=== PATIENT | female | born 1985 | race American Indian/Alaskan Native ===

== ENCOUNTER 2018-03-05 19:24 | Inpatient (IN) | payer MEDICAID, OTHER ==
[2018-03-05 21:10] LABS: BASO # 0.03 K/mm3 (0.0-2.0); BASO % 0.3 % (0.0-3.0); EOS # 0.1 (0.0-0.7); EOS % 0.9 % (1.5-5.0); GRAN # 4.97 (1.4-6.5); GRAN % 54.1 % (50.0-68.0); HEMOGLOBIN 12.6 g/dL (12.0-16.0); LYMPH # 3.6 (1.2-3.4); LYMPH % 39.2 % (22.0-35.0); MEAN CELL VOLUME 81.1 fl (80.0-105.0); MEAN CORPUSCULAR HGB CONC 34.5 g/dl (31.0-37.0); MEAN PLATELET VOLUME 8.8 fl (7.0-11.0); MONO # 0.5 (0.1-0.6); MONO % 5.5 % (1.0-6.0); RBC 4.5 10^6/uL (3.5-6.1); RED CELL DISTRIBUTION WIDTH 14.5 % (11.5-14.5); WHITE BLOOD COUNT 9.2 10^3/ul (4.5-11.0)
[2018-03-05 21:32] LABS: ACETAMINOPHEN < 10.0 ug/ml (10.0-20.0); ALB/GLOB RATIO 1.4 (1.1-1.8); ALBUMIN 4.6 g/dL (3.0-4.8); ALT/SGPT 36 U/L (7-56); AST/SGOT 41 U/L (14-36); BLOOD UREA NITROGEN 12 mg/dL (7-21); GFR AFRICAN-AMERICAN > 60; GFR NON-AFRICAN AMERICAN > 60; SALICYLATE < 1 mg/dL (2.0-20.0)
[2018-03-05 21:35] LABS: PH,URINE 6.5 (4.7-8.0); URINE APPEARANCE CLEAR (CLEAR); URINE BILIRUBIN NEGATIVE (NEGATIVE); URINE BLOOD NEGATIVE (NEGATIVE); URINE COLOR YELLOW (YELLOW); URINE GLUCOSE (UA) NEGATIVE (NEGATIVE); URINE LEUKOCYTE ESTERASE TRACE Leu/uL (NEGATIVE); URINE PROTEIN NEGATIVE mg/dL (<30 mg/dL); URINE UROBILINOGEN 0.2 E.U./dL (<1 E.U./dL)
[2018-03-05 21:55] LABS: BENZODIAZEPINES, UR NEGATIVE (NEGATIVE)
[2018-03-05 22:09] LABS: URINE BACTERIA FEW (NEG); URINE RBC NEGATIVE /hpf (0-2)
[2018-03-05 22:13] LABS: BARBITURATES, UR NEGATIVE (NEGATIVE); PHENCYCLIDINE, UR NEGATIVE (NEGATIVE)
[2018-03-05 22:44] LABS: OPIATES, UR NEGATIVE (NEGATIVE)
--- NOTE | 2018-03-05 23:44 | ED PDOC ---
Arrival/HPI - General Chief Complaint: Psychiatric Evaluation Time Seen by Provider: 03/05/18 19:26 Historian: Patient - History of Present Illness Narrative History of Present Illness (Text): 03/05/18 23:43 32-year-old female with a history of schizoaffective disorder presents today with suicidal ideation. Patient states she has thoughts of killing herself by drowning. Patient denies headache dizziness or weakness. Denies fevers or chills. No chest pain or shortness of breath. No other complaints Past Medical History - Provider Review Nursing Documentation Reviewed: Yes - Travel History Have you recently traveled outside [place] w/in the past 3 mons?: No - Tetanus Immunization Tetanus Immunization: Unknown - Cardiac Hx Cardiac Disorders: No - Pulmonary Hx Respiratory Disorders: No - Neurological Hx Neurological Disorder: No - HEENT Hx HEENT Disorder: No - Renal Hx Renal Disorder: No - Endocrine/Metabolic Hx Endocrine Disorders: No - Hematological/Oncological Hx Blood Disorders: No - Integumentary Hx Dermatological Disorder: No - Musculoskeletal/Rheumatological Hx Musculoskeletal Disorders: No - Gastrointestinal Hx Gastrointestinal Disorders: No - Genitourinary/Gynecological Hx Genitourinary Disorders: No - Psychiatric Hx Psychophysiologic Disorder: Yes Hx Schizophrenia: Yes (schizoaffective- med compliant) Hx Substance Use: No Family/Social History - Physician Review Nursing Documentation Reviewed: Yes Family/Social History: Unknown Family HX Smoking Status: Never Smoked Hx Alcohol Use: No Hx Substance Use: No Allergies/Home Meds Allergies/Adverse Reactions: Allergies codeine Allergy (Verified 03/05/18 19:39) RASH Home Medications: Home Meds Medication Instructions Recorded Confirmed Aripiprazole [Abilify] 30 mg PO DAILY 05/03/16 03/05/18 Benztropine [Cogentin] 1 mg PO BID 05/03/16 03/05/18 Olanzapine [Zyprexa] 30 mg PO DAILY 05/03/16 03/05/18 Sertraline [Zoloft] 125 mg PO DAILY 05/03/16 03/05/18 Norethindrone AC-Eth Estradiol 1 tab PO DAILY 03/05/18 03/05/18 [Junel 1 mg-20 Mcg Tablet] hydrOXYzine Pamoate [Vistaril] 25 mg PO DAILY 03/05/18 03/05/18 Review of Systems - Review of Systems Constitutional: absent: Fatigue, Fevers Respiratory: absent: SOB, Cough Cardiovascular: absent: Chest Pain, Palpitations Gastrointestinal: absent: Abdominal Pain, Nausea, Vomiting Genitourinary Female: absent: Dysuria, Frequency, Hematuria Musculoskeletal: absent: Arthralgias, Back Pain, Neck Pain Skin: absent: Rash, Pruritis Psychiatric: Depression, Suicidal Ideation Physical Exam Vital Signs Reviewed: Yes Vital Signs Temp Pulse Resp BP Pulse Ox 03/05/18 22:02 91 H 18 132/78 99 03/05/18 19:40 99.6 F 111 H 18 133/79 99 Temperature: Afebrile Blood Pressure: Normal Pulse: Tachycardic Respiratory Rate: Normal Appearance: Positive for: Well-Appearing, Non-Toxic, Comfortable Pain Distress: None Mental Status: Positive for: Alert and Oriented X 3 - Systems Exam Head: Present: Atraumatic Mouth: Present: Moist Mucous Membranes Neck: Present: Normal Range of Motion Respiratory/Chest: Present: Clear to Auscultation, Good Air Exchange. No: Respiratory Distress, Accessory Muscle Use Cardiovascular: Present: Regular Rate and Rhythm, Normal S1, S2. No: Murmurs Abdomen: No: Tenderness, Rebound, Guarding Upper Extremity: Present: Normal ROM Lower Extremity: Present: Normal ROM Neurological: Present: GCS=15, Speech Normal Skin: Present: Warm, Dry, Normal Color. No: Rashes Psychiatric: Present: Alert, Oriented x 3, Depressed Mood Medical Decision Making ED Course and Treatment: 03/06/18 00:12 Patient is nontoxic well-appearing in no distress vital signs are stable. pt with SI. pt was placed on 1:1 CBC WNL CMP WNL Tylenol WNL Salicylate WNL Alcohol level WNL Urine drug screen wnl UA; trace leukocytes, contamination. no UTI symptoms cxr: wnl ekg normal sinus rhythm at 82 bpm normal axis and no ST elevation QTC 42 pt is medically cleared for PES evaluation Patient was seen and evaluated by PES screener: nick Patient signed voluntarily to psychiatric floor Impression; schizoaffective disorder Admitted to behavioral health floor Reassessment Condition: Re-examined, Improved - Lab Interpretations Lab Results: 03/05/18 20:55 03/05/18 20:55 Lab Results 03/05/18 21:25: Urine Opiates Screen Negative, Urine Methadone Screen Negative, Ur Barbiturates Screen Negative, Ur Phencyclidine Scrn Negative, Ur Amphetamines Screen Negative, U Benzodiazepines Scrn Negative, U Oth Cocaine Metabols Negative, U Cannabinoids Screen Negative 03/05/18 21:25: Urine Color Yellow, Urine Appearance Clear, Urine pH 6.5, Ur Specific [place] 1.015, Urine Protein Negative, Urine Glucose (UA) Negative, Urine Ketones Negative, Urine Blood Negative, Urine Nitrate Negative, Urine Bilirubin Negative, Urine Urobilinogen 0.2, Ur Leukocyte Esterase Trace H, Urine RBC Negative, Urine WBC 2 - 5, Ur Epithelial Cells 10 - 12, Urine Bacteria Few 03/05/18 20:55: Alcohol, Quantitative < 10 03/05/18 20:55: Salicylates < 1 L, Acetaminophen < 10.0 L 03/05/18 20:55: Sodium 144, Potassium 3.9, Chloride 107, Carbon Dioxide 26, Anion Gap 15, BUN 12, Creatinine 0.9, Est GFR ( Amer) > 60, Est GFR (Non- Af Amer) > 60, Random Glucose 93, Calcium 10.0, Total Bilirubin 0.2, AST 41 H, ALT 36, Alkaline Phosphatase 62, Total Protein 7.8, Albumin 4.6, Globulin 3.3, Albumin/Globulin Ratio 1.4 03/05/18 20:55: WBC 9.2 D, RBC 4.50, Hgb 12.6, Hct 36.5, MCV 81.1, MCH 28.0, MCHC 34.5, RDW 14.5, Plt Count 343, MPV 8.8, Gran % 54.1, Lymph % (Auto) 39.2 H , [place] % (Auto) 5.5, Eos % (Auto) 0.9 L, Baso % (Auto) 0.3, Gran # 4.97, Lymph # (Auto) 3.6 H, [place] # (Auto) 0.5, Eos # (Auto) 0.1, Baso # (Auto) 0.03 - RAD Interpretation Radiology Orders: 03/05/18 19:51 CHEST PORTABLE [RAD] Stat Disposition/Present on Arrival - Present on Arrival Any Indicators Present on Arrival: No History of DVT/PE: No History of Uncontrolled Diabetes: No Urinary Catheter: No History of Decub. Ulcer: No History Surgical Site Infection Following: None - Disposition Have Diagnosis and Disposition been Completed?: Yes Diagnosis: Schizoaffective disorder, Suicidal ideations Disposition: HOSPITALIZED Disposition Time: 23:00 Patient Plan: Admission Condition: FAIR
[2018-03-06] MEDS ORDERED: Alum-Mag Hydrox-Simethicone Susp (30 mL) PO PRN (00:57)
[2018-03-06] MEDS ORDERED: Magnesium Hydroxide Susp 30 ml UD PO PRN (00:57)
[2018-03-06 03:15] VITALS: RESP 20
--- NOTE | 2018-03-06 03:41 | PCM.BM ---
<Rodolfo Dang - Last Filed: 03/06/18 03:37> Treatment Plan Problems - Problems identified on initial assessmt Suicidal Ideation Date Initiated: 03/06/18 Time Initiated: 03:37 Assessment reference: NA Status: Active Auditory Hallucinations Date Initiated: 03/06/18 Time Initiated: 03:38 Assessment reference: NA Status: Active Visual Hallucinations Date Initiated: 03/06/18 Time Initiated: 03:38 Assessment reference: NA Status: Active Ineffective Coping Date Initiated: 03/06/18 Time Initiated: 03:38 Assessment reference: NA Status: Active Hopelessness/Helplessness Date Initiated: 03/06/18 Time Initiated: 03:38 Assessment reference: NA Status: Active Feelings of Worthlessness Date Initiated: 03/06/18 Time Initiated: 03:39 Assessment reference: NA Status: Active Treatment assets and liabiliti Patient Assests: cooperative, educated, self-reliant, ADL independent, physically healthy, good support system, negotiates basic needs, cognitively intact Patient Liabilities: financial problems - Milieu Protocol Maintain good personal hygiene: daily Encourage regular showers, daily Remind patient to perform daily oral care, daily Assist patient to perform ADL's Conduct patient checks and document Observation sheet: Q15 minutes Maintain personal safety: every shift Educate patient to report safety concerns to staff, every shift Monitor environment for contraband/sharps Medication safety: Monitor for expected outcome, potential side effects: every shift, Assess barriers to learning: every shift, Assess readiness for medication education: every shift Discharge/Continuing Care - Education Needs Education Needs: Patient Medication, Patient Diagnosis/Disease Process, Patient Coping Skills, Patient Community resources, Patient Health Practices/Safety, Patient Aftercare Safety Plan - Discharge Discharge Criteria: Tolerates medication w/o severe side effects, Free of Suicidal thoughts, Free of Homicidal thoughts, Free of paranoid thoughts, Normal sleep pattern, Ability to care for self, Reduction of target symptoms <Laurie Mayer - Last Filed: 03/06/18 12:26> - Diagnosis (1) Schizoaffective disorder Status: Acute Interventions: 03/06/18 12:25 Psychoeducation supportive therapy Psychopharmacology/adjustment of medications as needed/ monitoring possible side effects Evaluate pt on daily basis Compliance with medications and follow up appointments Long acting medication if pt is noncompliant with pill form Suicide and homicide risk assessment and prevention, coping strategies, safety plan Relapse prevention Reduction of symptoms Improve functional status Possible assertive community treatment Cognitive behavioral therapy Family involvement Possible social skill training as outpatient
[2018-03-06 07:55] LABS: GLUCOSE,FASTING 84 mg/dL (65-110); HDL CHOLESTEROL 51 mg/dL (29-60)
[2018-03-06 08:06] LABS: LDL CHOLESTEROL 112 mg/dL (0-129)
--- NOTE | 2018-03-06 08:34 | RAD ---
HISTORY: pes COMPARISON: 09/12/2017. FINDINGS: LUNGS: The lungs are well inflated and clear. PLEURA: No significant pleural effusion identified, no pneumothorax apparent. CARDIOVASCULAR: Normal. OSSEOUS STRUCTURES: Within normal limits for the patient's age. There are bilateral bony cervical ribs. VISUALIZED UPPER ABDOMEN: Normal. OTHER FINDINGS: None. IMPRESSION: No active pulmonary disease.
--- NOTE | 2018-03-06 12:25 | PCM.PSYCH ---
Initial Psychiatric Evaluation - Initial Psychiatric Evaluation Type of Admission: Voluntary Legal Status: Capacity (Patient has capacity to sign consent for treatment) Chief Complaint (in patient's own words): "I had intrusive thoughts of drowning myself in the bathtub" Patient's Reaction to Hospitalization: patient was admitted to the psychiatric inpatient unit for evaluation and stabilization of depression as well as anxiety possible psychotic symptoms and possible suicidal ideation History of Present Illness and Precipitating Events: shortly, patient is 32 year old -[place]ian female, self reported history of schizoaffective disorder, 1 previous psychiatric admission at age of 18, patient has history of self mutilating behavior, patient has history of cutting herself, last time was more than a year ago, patient was referred by therapist at the [facility], for evaluation and stabilization of possible suicidal ideation with a plan to drown herself in bath tub as well as feeling of hurting others. Patient failed outpatient treatment, now she needs further evaluation and stabilization and acute psychiatric inpatient unit. Patient was seen and examined at the treatment team meeting, patient presented with acceptable personal hygiene, good ADLs, very thin build. Patient tried to minimize all of her symptoms, patient was withholding information about thoughts of hurting others we she reported in the emergency room. Patient said that she has intrusive thoughts of drowning herself into the bathtub, patient denied any intent or plan to do so. Patient reported that she was feeling stressed out and depressed for past 2 weeks, patient reported feeling hopeless, helpless, worthless, guilty, patient reported that she feels anxious all the time, patient reported that her sleep and appetite are fair. Patient denied history of abuse, patient reported that she has flashbacks and 9 bears about memories what she does not want to remember, for example when patient was admitted for her first time into the psychiatric inpatient unit. Patient reported that she has history of hearing voices for past 2 days she was hearing voices, patient described it as male voices and saying that "my life is potassium, and I need to go against God". in the emergency room patient stated: "I see flahsing lights and glows around people" Patient reported that she sees Dr. Flores on regular basis, patient reported that she is compliant with the medications. Past psychiatric history as this bond underwriter mentioned above patient has 1 previous hospitalization at the age of 18, patient denied history of suicidal attempts. Medical history: Patient denied medical history. Family history: Patient denied family history of mental illness. Patient denied smoking, denied using drugs denied drinking alcohol patient's pharmacy was contacted [facility] pharmacy phone number [phone] zyprexa 20 mg at the nighttime prescribed by Dr. Hernandez total patient filled prescription on February 27 Abilify 30 mg daily same prescriber field in February 27 Vistaril 25 mg twice a day same prescriber Zoloft 100 mg by mouth daily same prescriber Cogentin 1 mg twice a day same prescriber all meds were filled at the same day 03/05/18 20:55 03/05/18 20:55 Lab Results 03/06/18 07:10: TSH 3rd Generation 2.53 03/06/18 07:10: Fasting Glucose 84, Triglycerides 73, Cholesterol 192, LDL Cholesterol Direct 112, HDL Cholesterol 51 03/05/18 21:25: Urine Opiates Screen Negative, Urine Methadone Screen Negative, Ur Barbiturates Screen Negative, Ur Phencyclidine Scrn Negative, Ur Amphetamines Screen Negative, U Benzodiazepines Scrn Negative, U Oth Cocaine Metabols Negative, U Cannabinoids Screen Negative 03/05/18 21:25: Urine Color Yellow, Urine Appearance Clear, Urine pH 6.5, Ur Specific [place] 1.015, Urine Protein Negative, Urine Glucose (UA) Negative, Urine Ketones Negative, Urine Blood Negative, Urine Nitrate Negative, Urine Bilirubin Negative, Urine Urobilinogen 0.2, Ur Leukocyte Esterase Trace H, Urine RBC Negative, Urine WBC 2 - 5, Ur Epithelial Cells 10 - 12, Urine Bacteria Few 03/05/18 20:55: Alcohol, Quantitative < 10 03/05/18 20:55: Salicylates < 1 L, Acetaminophen < 10.0 L 03/05/18 20:55: Sodium 144, Potassium 3.9, Chloride 107, Carbon Dioxide 26, Anion Gap 15, BUN 12, Creatinine 0.9, Est GFR ( Amer) > 60, Est GFR (Non- Af Amer) > 60, Random Glucose 93, Calcium 10.0, Total Bilirubin 0.2, AST 41 H, ALT 36, Alkaline Phosphatase 62, Total Protein 7.8, Albumin 4.6, Globulin 3.3, Albumin/Globulin Ratio 1.4 03/05/18 20:55: WBC 9.2 D, RBC 4.50, Hgb 12.6, Hct 36.5, MCV 81.1, MCH 28.0, MCHC 34.5, RDW 14.5, Plt Count 343, MPV 8.8, Gran % 54.1, Lymph % (Auto) 39.2 H , [place] % (Auto) 5.5, Eos % (Auto) 0.9 L, Baso % (Auto) 0.3, Gran # 4.97, Lymph # (Auto) 3.6 H, [place] # (Auto) 0.5, Eos # (Auto) 0.1, Baso # (Auto) 0.03 Vital Signs Temp Pulse Resp BP Pulse Ox 03/06/18 07:28 97.9 F 82 20 115/74 03/05/18 23:51 20 03/05/18 23:45 98.7 F 97 H 18 128/82 100 03/05/18 22:02 91 H 18 132/78 99 03/05/18 19:40 99.6 F 111 H 18 133/79 99 Current Medications: Active Medications Generic Name Dose Route Start Last Admin Trade Name Freq PRN Reason Stop Dose Admin Acetaminophen 650 mg 03/06/18 00:57 Tylenol 325mg Tab PO Q6H PRN Pain, Mild (1-3) Al Hydrox/Mg Hydrox/Simethicone 30 ml 03/06/18 00:57 Maalox Plus 30 Ml PO DAILY PRN Upset Stomach Aripiprazole 15 mg 03/06/18 22:00 Abilify PO AMHS CANDICE Protocol Benztropine Mesylate 1 mg 03/06/18 22:00 Cogentin PO HS CANDICE Clonazepam 0.5 mg 03/06/18 01:00 Klonopin PO HS PRN Anxiety Protocol Hydroxyzine Pamoate 25 mg 03/06/18 01:00 Vistaril PO Q6 PRN Anxiety Protocol Magnesium Hydroxide 30 ml 03/06/18 00:57 Milk Of Magnesia PO DAILY PRN Constipation Olanzapine 20 mg 03/06/18 22:00 Zyprexa Zydis PO HS CANDICE Protocol Sertraline HCl 150 mg 03/07/18 08:00 Zoloft PO DAILY CANDICE Sertraline HCl 100 mg 03/06/18 12:09 Zoloft PO 03/06/18 12:10 STAT STA Zaleplon 5 mg 03/06/18 01:00 Sonata PO HS PRN Insomnia Zoloft will be increased Risk, benefits, alternatives of medications were discussed with the patient Past Psychiatric History - Past Psychiatric History Previous Treatment History: Inpatient Prior Professional Help: see HPI Prior Psychiatric Treatment: see HPI At what hospital: see HPI Duration: see HPI Nature of Treatment: see HPI Explanation of prior treatment: see HPI History of Abuse: see HPI History of ETOH/Drug Use: see HPI History of Family Illness: see HPI Pertinent Medical Hx (Current Medical&Sleep Prob, Allergies): Allergies Allergy/AdvReac Type Severity Reaction Status Date / Time codeine Allergy RASH Verified 03/06/18 00:59 Aripiprazole [Abilify] 30 mg PO DAILY 05/03/16 Benztropine [Cogentin] 1 mg PO BID 05/03/16 Olanzapine [Zyprexa] 30 mg PO DAILY 05/03/16 Sertraline [Zoloft] 125 mg PO DAILY 05/03/16 Norethindrone AC-Eth Estradiol [Junel 1 mg-20 Mcg Tablet] 1 tab PO DAILY hydrOXYzine Pamoate [Vistaril] 25 mg PO DAILY 03/05/18 Review of Systems - Review of Systems Systems not reviewed;Unavailable: Acuity of Condition - EENT Eyes: As Per HPI Ears: As Per HPI Nose/Mouth/Throat: As Per HPI - Breasts Breasts: As Per HPI - Cardiovascular Cardiovascular: As Per HPI - Respiratory Respiratory: As Per HPI - Gastrointestinal Gastrointestinal: As Per HPI - Genitourinary Genitourinary: As Per HPI - Reproductive: Female Reproductive:Female: As Per HPI - Menstruation Menstruation: As Per HPI - Musculoskeletal Musculoskeletal: As Par HPI - Integumentary Integumentary: As Per HPI - Neurological Neurological: As Per HPI - Psychiatric Psychiatric: As Per HPI - Endocrine Endocrine: As Per HPI - Hematologic/Lymphatic Hematologic: As Per HPI Mental Status Examination - Personal Presentation Personal Presentation: Looks stated age - Affect Affect: Flat - Motor Activity Motor Activity: Psychomotor Retardation - Reliability in Providing Information Reliability in Providing Information: Fair - Speech Speech: Organized, Tangential - Mood Mood: Depressed, Anxious - Formal Thought Process Formal Thought Process: Hallucinations, Delusions, Paranoia - Hallucinations/Delusions Hallucinations: Visual, Auditory Delusions: Persecution - Obsessions/Compulsions Obsessions: Yes Description of Obsession/Compulsion: patient has obsessive thoughts of drowning herself - Cognitive Functions Orientation: Person, Place, Situation Sensorium: Alert Attention/Concentration: Easily distracted Estimate of Intelligence: Average Judgement: Intact, as evidence by: Insight regarding need for hospitalization - Risk Risk: Self-mutilation, Diminished functioning - Strength & Assets Inventory Strength & Assets Inventory: Intelligence, Family support, Cooperative, Other ( patient denied using drugs, denied smoking) - Limitations Limitations: Other (evere in a sober symptoms) DSM 5 DX - DSM 5 DSM 5 Diagnosis: as per history of schizoaffective disorder - Recommended/Plan of Treatment Treatment Recommendations and Plan of Treatment: Milieu/structure/supportive therapy Medical consult appreciated, see medical team note for more detailed info SW consultation for discharge plan and social issues Med management medications were confirmed by pharmacy please see above Zoloft will be increased to 150 mg daily Zyprexa and Abilify will be continued Sonata as needed for insomnia Klonopin as needed for anxiety Family involvement Follow up on labs Will monitor closely Pt was educated about risk/benefits and alternatives of medications, coping strategies (safety plan, suicide prevention), relapse prevention, importance of follow up with psychiatrist and therapist, stay away from drugs/alcohol/smoking Projected ELOS: 7 days Prognosis: guarded Discharge Plan and Discharge Criteria: Pt will be not depressed or manic, will be more hopeful, will be not psychotic or anxious, will be not having thoughts of harming self or others, will be tolerating medications well, will not have major side effects, will be able to function, will not pose threat to self or others. - Smoking Cessation Smoking Cessation Initiated: No Reason for not providing: patient denied smoking
--- NOTE | 2018-03-06 14:38 | CARD ---
APPROVED REPORT EKG Measurement Heart [id number] <Conclusion> Normal sinus rhythm Possible Left atrial enlargement Borderline ECG
[2018-03-06] MEDS ORDERED: OLANZapine 10 mg Disintegrating Tab PO SCH (22:00)
[2018-03-07 06:25] VITALS: TEMP 97.8; O2SAT 94
--- NOTE | 2018-03-07 16:53 | PCM.PYCHDC ---
Mental Status Examination - Mental Status Examination Orientation: Person, Place, Situation, Time Memory: Impaired Mood: Neutral Affect: Constricted (at times innapropriate) Attention: Poor (with some improvement) Concentration: Poor (with some improvement) Association: Loose (baseline) Fund of Knowledge: WNL Formal Thought Process: Circumstantial Description of patient's judgement and insight: Pt has improved insight into mental and medical illness, pt was compliant with medications and unit rules and regulations, pt was going to groups, was calm, cooperative, socially appropriate, no behavioral incidents, no agitation, no aggression. Psychotic Thoughts and Behaviors: Pt denied v/a/t hallucinations, denied paranoid ideation, pt does not appear to be psychotic, and thought process is goal directed. Suicidal Ideation: No Current Homicidal Ideation?: No Plan: pt adamantly denied thoughts of harming self or others denied intent or plan. Discharge Summary - Discharge Note Reason for Hospitalization: patient was admitted to the psychiatric inpatient unit for evaluation and stabilization of depression as well as anxiety possible psychotic symptoms and possible suicidal ideation but no intent or plan Psychiatric History (includes Medical, Family, Personal Hx): see HPI Laboratory Data: Abnormal Lab Results 03/06/18 07:10 RPR Nonreactive Consultations:: List each consultation separately and include: 1. Reason for request. 2. Findings. 3. Follow-up Consultations: was seen by medical team and the emergency room Summary of Hospital Course include:: 1. Description of specific treatment plan utilized for patients during their course of treatmen. 2. Summarize the time- course for resolution of acute symptoms and/or regressed behaviors. 3. Describe issues identified and worked on during hospitalization. 4. Describe medication utilized. 5. Describe medical problems identified and treated. 6. Reassessment of suicide risk Summary of Hospital Course: shortly, patient is 32 year old -[place] female, self reported history of schizoaffective disorder, 1 previous psychiatric admission at age of 18, patient has history of self mutilating behavior, patient has history of cutting herself, last time was more than a year ago, patient was referred by therapist at the [facility], for evaluation and stabilization of possible suicidal ideation with a plan to drown herself in bath tub as well as feeling of hurting others. Patient failed outpatient treatment, now she needs further evaluation and stabilization and acute psychiatric inpatient unit. Patient was seen and examined at the treatment team meeting, patient presented with acceptable personal hygiene, good ADLs, very thin build. Patient tried to minimize all of her symptoms, patient was withholding information about thoughts of hurting others we she reported in the emergency room. Patient said that she has intrusive thoughts of drowning herself into the bathtub, patient denied any intent or plan to do so. Patient reported that she was feeling stressed out and depressed for past 2 weeks, patient reported feeling hopeless, helpless, worthless, guilty, patient reported that she feels anxious all the time, patient reported that her sleep and appetite are fair. Patient denied history of abuse, patient reported that she has flashbacks and memories what she does not want to remember, for example when patient was admitted for her first time into the psychiatric inpatient unit. Patient reported that she has history of hearing voices for past 2 days she was hearing voices, patient described it as male voices and saying that "my life is pathetic, and I need to go against God". in the emergency room patient stated: "I see flahsing lights and glows around people" Patient reported that she sees Dr. Flores on regular basis, patient reported that she is compliant with the medications. Past psychiatric history as this science writer mentioned above patient has 1 previous hospitalization at the age of 18, patient denied history of suicidal attempts. Medical history: Patient denied medical history. Family history: Patient denied family history of mental illness. Patient denied smoking, denied using drugs denied drinking alcohol patient's pharmacy was contacted [facility] pharmacy phone number [phone] zyprexa 20 mg at the nighttime prescribed by Dr. Hernandez total patient filled prescription on February 27 Abilify 30 mg daily same prescriber field in February 27 Vistaril 25 mg twice a day same prescriber Zoloft 100 mg by mouth daily same prescriber Cogentin 1 mg twice a day same prescriber all meds were filled at the same day 03/05/18 20:55 03/05/18 20:55 Lab Results 03/06/18 07:10: TSH 3rd Generation 2.53 03/06/18 07:10: Fasting Glucose 84, Triglycerides 73, Cholesterol 192, LDL Cholesterol Direct 112, HDL Cholesterol 51 03/05/18 21:25: Urine Opiates Screen Negative, Urine Methadone Screen Negative, Ur Barbiturates Screen Negative, Ur Phencyclidine Scrn Negative, Ur Amphetamines Screen Negative, U Benzodiazepines Scrn Negative, U Oth Cocaine Metabols Negative, U Cannabinoids Screen Negative 03/05/18 21:25: Urine Color Yellow, Urine Appearance Clear, Urine pH 6.5, Ur Specific [place] 1.015, Urine Protein Negative, Urine Glucose (UA) Negative, Urine Ketones Negative, Urine Blood Negative, Urine Nitrate Negative, Urine Bilirubin Negative, Urine Urobilinogen 0.2, Ur Leukocyte Esterase Trace H, Urine RBC Negative, Urine WBC 2 - 5, Ur Epithelial Cells 10 - 12, Urine Bacteria Few 03/05/18 20:55: Alcohol, Quantitative < 10 03/05/18 20:55: Salicylates < 1 L, Acetaminophen < 10.0 L 03/05/18 20:55: Sodium 144, Potassium 3.9, Chloride 107, Carbon Dioxide 26, Anion Gap 15, BUN 12, Creatinine 0.9, Est GFR ( Amer) > 60, Est GFR (Non- Af Amer) > 60, Random Glucose 93, Calcium 10.0, Total Bilirubin 0.2, AST 41 H, ALT 36, Alkaline Phosphatase 62, Total Protein 7.8, Albumin 4.6, Globulin 3.3, Albumin/Globulin Ratio 1.4 03/05/18 20:55: WBC 9.2 D, RBC 4.50, Hgb 12.6, Hct 36.5, MCV 81.1, MCH 28.0, MCHC 34.5, RDW 14.5, Plt Count 343, MPV 8.8, Gran % 54.1, Lymph % (Auto) 39.2 H , [place] % (Auto) 5.5, Eos % (Auto) 0.9 L, Baso % (Auto) 0.3, Gran # 4.97, Lymph # (Auto) 3.6 H, [place] # (Auto) 0.5, Eos # (Auto) 0.1, Baso # (Auto) 0.03 Vital Signs Temp Pulse Resp BP Pulse Ox 03/06/18 07:28 97.9 F 82 20 115/74 03/05/18 23:51 20 03/05/18 23:45 98.7 F 97 H 18 128/82 100 03/05/18 22:02 91 H 18 132/78 99 03/05/18 19:40 99.6 F 111 H 18 133/79 99 patient was observed for past 48 hours in the psychiatric inpatient unit, patient was calm, corporative, patient does not have any behavioral issues, patient requested to be discharged, submitted 48 hour letter, from this science writer observation patient is not ready to be discharged, at the same time patient does not meet the criteria for [facility] screening process. Patient mother was contacted by , as per mother patient presented "very well" patient mother is willing to accept patient back home, this science writer was concerned about patient's inability to understand and process information and giving weird glances during the treatment team meeting, but as per mother "it is normal for her". Patient mother was not expressing any concerns at this point , she agreed to take patient back home, said that she is coming to the hospital to pick her daughter at the evening time. Patient mother asked for prescription for Zoloft only. Patient mother reported that patient has all of her medications at home. medications were confirmed by pharmacy, all medications resumed, Zoloft was increased to 150 mg daily for possible OCD symptoms and depression. Patient will be continued on Abilify 30 mg a day as well as Zyprexa 10 mg at the nighttime Over the course of this hospitalization pt was attending groups, pt also had medication management, had therapeutic milieu. Overall pt improved pt has realistic future oriented plans there is a family event scheduled for tomorrow, patient appeared not to be depressed, thought process is mildly disorganized, but not acutely psychotic, patient adamantly denied thoughts of harming herself or others, was socially appropriate, no agitation, no aggression. At the time of the discharge pt denied been depressed, denied thoughts of harming self or others, denied psychotic symptoms, adenied been anxious, pt is not in imminent danger to self or others, will be following up at office, information about follow up appointment, time and address provided to the pt, it is patient responsibility to follow up with outpatient clinic, PMD as well as specialists (see note for more detailed information). In case pt will need to obtain results of studies pending at discharge pt was provided with contact information of Psychiatric Inpatient unit [phone] as well as Medical Record Department [phone]. patient denied smoking, denied drinking alcohol pt was provided with prescriptions for all of medications (please see medication reconciliation form) Pt was educated about safety plan in case of worsening of symptoms or in case of suicidal or homicidal ideation call 911 or go to the nearest ER, also was educated to take meds as prescribed and stay away from drugs, pt verbalized understanding. - Diagnosis (1) Schizoaffective disorder Current Visit: Yes Status: Chronic Priority: High - Final Diagnosis (DSM 5) Condition upon Discharge: FAIR Disposition: AGAINST MEDICAL ADVICE Follow-up Treatment Plan: At the time of the discharge pt denied been depressed, denied thoughts of harming self or others, denied psychotic symptoms, adenied been anxious, pt is not in imminent danger to self or others, will be following up at office, information about follow up appointment, time and address provided to the pt, it is patient responsibility to follow up with outpatient clinic, PMD as well as specialists (see SW note for more detailed information). In case pt will need to obtain results of studies pending at discharge pt was provided with contact information of Psychiatric Inpatient unit [phone] as well as Medical Record Department [phone]. patient denied smoking, denied drinking alcohol pt was provided with prescriptions for all of medications (please see medication reconciliation form) Pt was educated about safety plan in case of worsening of symptoms or in case of suicidal or homicidal ideation call 911 or go to the nearest ER, also was educated to take meds as prescribed and stay away from drugs, pt verbalized understanding. Prescriptions/Medication Reconciliation: Sertraline [Zoloft] 150 mg PO DAILY #45 tab - Smoking Cessation Smoking Cessation Medication prescribed: No Reason for not providing: denies smoking - Antipsychotic Medications Pt discharged on 2 or more routine antipsychotic medications: Yes - Justification for 2 or more meds Failed 3 or more trials of Monotherapy: List medications: patient was on Abilify as well as on Zyprexa since age of 18, patient has outpatient provider was prescribing dose medication to her, patient does not want this medication to be changed, patient will be discharged AGAINST MEDICAL ADVICE, might benefit from Clozaril as outpatient. Plan to taper monotherapy: List medications: patient did not want to participate in treatment plan, wants to be discharged, it would be not lala to discontinue one of the psychotropic medications, patient will be discharged AGAINST MEDICAL ADVICE
[2018-03-07 17:02] VITALS: BP 103/63; PULSE 107
[2018-03-07] MEDS ORDERED: JUNEL FE PO SCH ×2 (22:00)
== END 2018-03-07 20:06 | disposition left against medical advice (07) | DRG 430 ==
LOC: ED 19:24 → ERH 23:30 → PSYC 23:57
PROVIDERS: ADMIT Psychiatry & Neurology Psychiatry; ATTEND Psychiatry & Neurology Psychiatry
DX: F25.9 Schizoaffective disorder, unspecified (principal); R45.851 Suicidal ideations

== ENCOUNTER 2019-02-09 12:46 | Emergency (ER) | payer OTHER, BC | END 2019-02-09 16:09 | disposition home or self-care (01) | LOC: ED 12:46 ==